=== PATIENT | female | born 1995 | race Caucasian/White ===

== ENCOUNTER 2018-12-13 13:31 | Emergency (ER) | payer MEDICAID ==
[~2018-12-13] VITALS: Ht 177.8 cm; Wt 90.7 kg
[2018-12-13 13:31] VITALS: BP_SYST 131
--- NOTE | 2018-12-13 13:31 | NUR ---
BROUGHT BACK TO BED #3 AND TRIAGED. REPORT GIVEN TO DAVID
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
--- NOTE | 2018-12-13 14:07 | NUR ---
ER at bedside examining patient.
--- NOTE | 2018-12-13 14:20 | NUR ---
Colly splint applied to the right wrist. Pt tolerated well. Cap refill < 3 sec, pt is able to move all the fingers on the affected extremity, hand is warm to the touch. PT instructed to f/u w/ her clerk.
[2018-12-13 14:30] VITALS: BP_SYST 131
--- NOTE | 2018-12-13 14:39 | NUR ---
Patient given written and verbal discharge instructions and verbalizes understanding. ER MD discussed with patient the results and treatment provided. Patient in stable condition. ID arm band removed. Rx of Tramadol given. Patient educated on pain management and to follow up with PMD. Pain Scale 3/10.Opportunity for questions provided and answered. Medication side effect fact sheet provided.
== END 2018-12-13 14:39 | disposition home or self-care (01) ==
LOC: SED 13:31
DX: S52.501A Unspecified fracture of the lower end of right radius, initial encounter for closed fracture (principal); V49.40XA Driver injured in collision with unspecified motor vehicles in traffic accident, initial encounter; Y93.89 Activity, other specified; Y92.89 Other specified places as the place of occurrence of the external cause; Y99.8 Other external cause status
CPT/HCPCS: 99283